=== PATIENT | female | born 1945 | race Two or more races ===

== ENCOUNTER → 2017-03-10 | Outpatient (CLI) | payer MEDICARE ==
--- NOTE | 2017-03-10 16:20 | REP ---
Clinical: Nephrolithiasis. Comparison: None. Technique: Two supine views of the abdomen and pelvis. Findings: Left intrarenal calculi measuring up to approximately 6 mm cannot be excluded. Calcifications in the pelvis likely represent phleboliths. Further evaluation of the urinary tract system is significantly limited due to technique and overlying bowel gas. Moderate fecal stasis is suggested without evidence for bowel obstruction. Skeletal structures demonstrate age-related degenerative changes. Impression: Findings suggest nonobstructing left renal calculi up to 6 mm. Further evaluation of the urinary tract system is limited. Signed by Twan Chavez MD 03/10/2017 04:12 P
== END ==
LOC: M SMT 15:27
PROVIDERS: ATTEND Nurse Practitioner Family
DX: R32 Unspecified urinary incontinence (principal); Z87.442 Personal history of urinary calculi
CPT/HCPCS: 51798; 74000; 81001; 87086; G0463

== ENCOUNTER → 2017-06-28 | Outpatient (REF) | payer MEDICARE | LOC: M SMT 16:58 | DX: N20.0 Calculus of kidney (principal) | CPT/HCPCS: 82360 ==

== ENCOUNTER → 2017-07-26 | Outpatient (CLI) | payer MEDICARE | LOC: M LRY 15:54 | DX: M19.041 Primary osteoarthritis, right hand (principal); M85.441 Solitary bone cyst, right hand; M79.641 Pain in right hand | CPT/HCPCS: 73130; 84550 ==

== ENCOUNTER → 2017-08-15 | Outpatient (CLI) | payer MEDICARE | LOC: M SMT 13:40 | DX: N20.0 Calculus of kidney (principal) | CPT/HCPCS: 74018; G0463 ==

== ENCOUNTER → 2017-11-17 | Outpatient (REF) | payer MEDICARE, MEDICAID ==
[2017-11-17 13:30] LABS: APPEARANCE, URINE CLEAR (CLEAR); BACTERIA, URINE AUTO NEGATIVE (NEGATIVE); BILIRUBIN, URINE AUTO NEGATIVE (NEGATIVE); BLOOD, URINE BLOOD 1+ (NEGATIVE); COLOR, URINE YELLOW (YELLOW); GLUCOSE, URINE (UA) AUTO NEGATIVE (NEGATIVE); KETONE, URINE AUTO NEGATIVE (NEGATIVE); LEUKOCYTE ESTERASE, URINE AUTO 1+ (NEGATIVE); MUCUS, URINE SMALL (NEGATIVE); NITRITE, URINE AUTO NEGATIVE (NEGATIVE); PROTEIN, URINE AUTO NEGATIVE (NEGATIVE); RBC, URINE AUTO 3 /HPF (0-3); SPECIFIC GRAVITY URINE AUTO 1.012 (1.002-1.035); SQUAMOUS EPITHELIAL CELL UR AU 0 /HPF (0-6); UROBILINOGEN, URINE AUTO 0.2 mg/dL (0.0-2.0); WBC, URINE AUTO 7 /HPF (0-3)
== END ==
LOC: M SMT 13:07
DX: N20.0 Calculus of kidney (principal)
CPT/HCPCS: 81001

== ENCOUNTER → 2017-11-28 | Outpatient (REF) | payer MEDICARE, MEDICAID ==
[2017-11-28 20:59] LABS: ESTIMATED AVERAGE GLUCOSE 131 MG/DL (60-110); HEMOGLOBIN A1c 6.2 %
== END ==
LOC: M SFHCLERA 15:26
DX: E11.29 Type 2 diabetes mellitus with other diabetic kidney complication (principal)
CPT/HCPCS: 83036

== ENCOUNTER → 2017-12-20 | Outpatient (CLI) | payer MEDICARE, MEDICAID | LOC: M RAD 10:35 | DX: Z12.31 Encounter for screening mammogram for malignant neoplasm of breast (principal); N60.31 Fibrosclerosis of right breast; N60.32 Fibrosclerosis of left breast | CPT/HCPCS: 77067 ==

== ENCOUNTER → 2018-02-28 | Outpatient (REF) | payer MEDICARE, MEDICAID ==
[2018-02-28 20:51] LABS: ANION GAP 7 MEQ/L (8-16); BLOOD UREA NITROGEN 11 MG/DL (7-18); CALCIUM LEVEL 9.3 MG/DL (8.8-10.2); CARBON DIOXIDE LEVEL 30 MEQ/L (21-32); CHLORIDE LEVEL 106 MEQ/L (98-107); CREATININE FOR GFR 0.76 MG/DL (0.55-1.30); GLOMERULAR FILTRATION RATE > 60.0 (>39); GLUCOSE, FASTING 114 MG/DL (70-100); POTASSIUM SERUM 3.6 MEQ/L (3.5-5.1); SODIUM LEVEL 143 MEQ/L (136-145)
== END ==
LOC: M SFHCLERA 14:56
DX: I10 Essential (primary) hypertension (principal)
CPT/HCPCS: 80048

== ENCOUNTER → 2018-05-12 | Outpatient (CLI) | payer MEDICARE, MEDICAID ==
--- NOTE | 2018-05-12 10:44 | REP ---
KUB, ONE VIEW: HISTORY: Kidney stone. COMPARISON: 08/15/2017 A small amount of air is present in small and large intestine. There are no air fluid levels or dilated loops of intestine. There is no pneumoperitoneum. Calcifications are present overlying the left kidney consistent with nephrolithiasis. Calcifications are present in the pelvis consistent with phleboliths. IMPRESSION: 1. Nonspecific bowel gas pattern. 2. Left nephrolithiasis. Electronically Signed by Josse Jc MD 05/12/2018 10:46 A
== END ==
LOC: M SMT 09:58
PROVIDERS: ATTEND Nurse Practitioner Family
DX: N20.0 Calculus of kidney (principal)
CPT/HCPCS: 74018; G0463

== ENCOUNTER → 2018-06-13 | Outpatient (CLI) | payer MEDICARE, MEDICAID ==
--- NOTE | 2018-06-13 12:15 | REP ---
Chest two views HISTORY: Cough Comparison: None The lungs are clear. The heart is normal in size. The pulmonary vasculature is normal in appearance. The bony structure is intact. IMPRESSION: No acute disease. Electronically Signed by Josse Jc MD 06/13/2018 12:06 P
== END ==
LOC: M LRY 11:20
PROVIDERS: ATTEND Nurse Practitioner Family
DX: R05 Cough (principal)
CPT/HCPCS: 71046; G0463

== ENCOUNTER → 2018-07-04 | Outpatient (REF) | payer MEDICARE, MEDICAID ==
[2018-07-04 12:20] LABS: BLOOD UREA NITROGEN 11 MG/DL (7-18); CALCIUM LEVEL 9.7 MG/DL (8.8-10.2); CARBON DIOXIDE LEVEL 30 MEQ/L (21-32); CHLORIDE LEVEL 104 MEQ/L (98-107); CHOLESTEROL LEVEL 241 MG/DL (<200); CHOLESTEROL RISK RATIO 5.604 (<5); CREATININE FOR GFR 0.75 MG/DL (0.55-1.30); GLOMERULAR FILTRATION RATE > 60.0 (>39); GLUCOSE, FASTING 111 MG/DL (70-100); HDL CHOLESTEROL 43 MG/DL (>40); LDL CHOLESTEROL 144 MG/DL (<100); NON-HDL-C 198 MG/DL; POTASSIUM SERUM 4.2 MEQ/L (3.5-5.1); SODIUM LEVEL 142 MEQ/L (136-145); TRIGLYCERIDES LEVEL 272 MG/DL (<150)
[2018-07-04 14:05] LABS: HEMOGLOBIN A1c 6.1 %
[2018-07-04 14:10] LABS: MALB URINE SIEMENS 50.3 MG/L; MAU/CREAT RATIO 32.4 MCG/MG (0.0-30.0)
== END ==
LOC: M SFHCLERA 08:15
PROVIDERS: ATTEND Family Medicine
DX: E11.29 Type 2 diabetes mellitus with other diabetic kidney complication (principal); I10 Essential (primary) hypertension

== ENCOUNTER → 2018-11-09 | Outpatient (CLI) | payer MEDICARE, MEDICAID ==
--- NOTE | 2018-11-09 10:31 | REP ---
Supine abdomen single AP view: Comparisons are 05/12/[address] of 10/21/2017. There are calcifications in the abdomen on the left, similar to the 05/12/2018 plain film study. These could be left renal calculi. The left kidney is obscured by bowel. The right kidney is partially obscured by bowel. No calcifications are identified on the right. There are phleboliths in the pelvis. The bowel gas pattern is normal. Electronically Signed by Robert Layne MD 11/09/2018 10:23 A
== END ==
LOC: M SMT 09:59
PROVIDERS: ATTEND Nurse Practitioner Family
DX: I87.8 Other specified disorders of veins (principal); N20.0 Calculus of kidney
CPT/HCPCS: 74018; G0463

== ENCOUNTER → 2019-01-09 | Outpatient (REF) | payer MEDICARE, MEDICAID ==
[2019-01-09 17:19] LABS: BLOOD UREA NITROGEN 12 MG/DL (7-18); CALCIUM LEVEL 9.6 MG/DL (8.8-10.2); CARBON DIOXIDE LEVEL 31 MEQ/L (21-32); CHLORIDE LEVEL 104 MEQ/L (98-107); CREATININE FOR GFR 0.81 MG/DL (0.55-1.30); GLOMERULAR FILTRATION RATE > 60.0 (>39); GLUCOSE, FASTING 84 MG/DL (70-100); SODIUM LEVEL 142 MEQ/L (136-145); URIC ACID 6.3 MG/DL (2.6-6.0)
[2019-01-09 17:47] LABS: CREATININE, URINE 29.4 MG/DL; CREATININE,RANDOM URINE 29.4 MG/DL; MALB URINE SIEMENS 25.1 MG/L; MAU/CREAT RATIO 85.3 MCG/MG (0.0-30.0); URIC ACID,RANDOM URINE 13.7 MG/DL
== END ==
LOC: M SFHCLERA 12:26
PROVIDERS: ATTEND Family Medicine
DX: I10 Essential (primary) hypertension (principal); E11.29 Type 2 diabetes mellitus with other diabetic kidney complication; M10.9 Gout, unspecified
CPT/HCPCS: 80048; 82043; 82570; 83036; 84550; 84560; G0463

== ENCOUNTER → 2019-01-11 | Outpatient (CLI) | payer MEDICARE, MEDICAID ==
--- NOTE | 2019-01-11 12:02 | REP ---
BILATERAL SCREENING DIGITAL MAMMOGRAM WITH 3D TOMOSYNTHESIS: There are no palpable abnormalities or other breast complaints. The the patient states she has not had a clinical breast examination in over a year. The Tyrer Cuzick Score is: 5.1% . Comparisons are 12/20/2017 and 06/21/2016. The breasts are heterogeneously dense, which could obscure small masses. There is no dominant mass, micro calcific cluster or architectural distortion that would indicate malignancy. There are no additional findings on 3D tomosynthesiss. There is no change from the prior study. Impression: BIRADS/ACR category 1 mammogram. Negative. Recommendation: Routine annual screening mammography. Because of the increased breast density, annual adjunctive breast MRI in addition to screening mammography is recommended. These can be performed at alternating six month intervals. This mammogram was interpreted with the aid of a FDA approved computer-aided detection system. A. Negative mammogram reports should not delay biopsy if a dominant or clinically suspicious mass is present. B. Not all breast cancers are identified by mammography or tomosynthesis. C. Adenosis and dense breasts may obscure an underlying neoplasm. Patient letter M1 dense breasts. Electronically Signed by Robert Layne MD 01/11/2019 11:53 A
== END ==
LOC: M RAD 10:57
PROVIDERS: ATTEND Family Medicine
DX: Z12.31 Encounter for screening mammogram for malignant neoplasm of breast (principal)

== ENCOUNTER → 2019-04-12 | Outpatient (REF) | payer MEDICARE, MEDICAID ==
[2019-04-12 16:25] LABS: BASO % 0.6 % (0.0-1.0); EOS # 0.1 10^3/uL (0.0-0.5); EOS % 1.9 % (0.0-3.0); HEMATOCRIT 52.2 % (36.0-47.0); HEMOGLOBIN 17.3 g/dl (12.0-15.5); LYMPH # 2.2 10^3/uL (1.5-5.0); LYMPH % 30.1 % (24.0-44.0); MEAN CORPUSCULAR HEMOGLOBIN 31.1 pg (27.0-33.0); MEAN CORPUSCULAR HGB CONC 33.1 g/dl (32.0-36.5); MEAN CORPUSCULAR VOLUME 93.9 fl (80.0-96.0); MONO # 0.5 10^3/uL (0.0-0.8); MONO % 6.9 % (0.0-5.0); NEUTROPHILS # 4.4 10^3/uL (1.5-8.5); NEUTROPHILS % 60.2 % (36.0-66.0); PLATELET COUNT, AUTOMATED 204 10^3/uL (150-450); RED BLOOD COUNT 5.56 10^6/uL (4.00-5.40); WHITE BLOOD COUNT 7.2 10^3/uL (4.0-10.0)
[2019-04-12 16:29] LABS: AMORPHOUS SEDIMENT SMALL (NEGATIVE); APPEARANCE, URINE HAZY (CLEAR); BACTERIA, URINE AUTO NEGATIVE (NEGATIVE); BILIRUBIN, URINE AUTO NEGATIVE (NEGATIVE); BLOOD, URINE BLOOD NEGATIVE (NEGATIVE); COLOR, URINE YELLOW (YELLOW); GLUCOSE, URINE (UA) AUTO NEGATIVE (NEGATIVE); KETONE, URINE AUTO NEGATIVE (NEGATIVE); LEUKOCYTE ESTERASE, URINE AUTO TRACE (NEGATIVE); NITRITE, URINE AUTO NEGATIVE (NEGATIVE); PROTEIN, URINE AUTO NEGATIVE (NEGATIVE); RBC, URINE AUTO 2 /HPF (0-3); SPECIFIC GRAVITY URINE AUTO 1.011 (1.002-1.035); SQUAMOUS EPITHELIAL CELL UR AU 0 /HPF (0-6); UROBILINOGEN, URINE AUTO 0.2 mg/dL (0.0-2.0); WBC, URINE AUTO 10 /HPF (0-3)
[2019-04-12 17:07] LABS: CREATININE, URINE 57.3 MG/DL; MALB URINE SIEMENS 19.2 MG/L; MAU/CREAT RATIO 33.5 MCG/MG (0.0-30.0)
[2019-04-12 17:10] LABS: ALBUMIN 3.9 GM/DL (3.2-5.2); ALT/SGPT 19 U/L (12-78); BILIRUBIN,TOTAL 1.2 MG/DL (0.2-1.0); BLOOD UREA NITROGEN 13 MG/DL (7-18); CALCIUM LEVEL 9.7 MG/DL (8.8-10.2); CARBON DIOXIDE LEVEL 32 MEQ/L (21-32); CHLORIDE LEVEL 104 MEQ/L (98-107); CREATININE FOR GFR 0.82 MG/DL (0.55-1.30); GLOMERULAR FILTRATION RATE > 60.0 (>39); GLUCOSE, FASTING 74 MG/DL (70-100); NT-PRO BNP 252 PG/ML (<125); SODIUM LEVEL 143 MEQ/L (136-145); TOTAL PROTEIN 7.2 GM/DL (6.4-8.2)
== END ==
LOC: M SFHCLERA 12:55
PROVIDERS: ATTEND Family Medicine
DX: I10 Essential (primary) hypertension (principal); M79.89 Other specified soft tissue disorders; R35.0 Frequency of micturition
CPT/HCPCS: 80053; 81001; 82043; 83880; 84443; 85025; 87086; G0463

== ENCOUNTER → 2019-07-04 | Outpatient (REF) | payer MEDICARE, MEDICAID ==
[2019-07-04 20:36] LABS: BLOOD UREA NITROGEN 13 MG/DL (7-18); CALCIUM LEVEL 9.1 MG/DL (8.8-10.2); CARBON DIOXIDE LEVEL 32 MEQ/L (21-32); CHLORIDE LEVEL 107 MEQ/L (98-107); CREATININE FOR GFR 0.82 MG/DL (0.55-1.30); GLOMERULAR FILTRATION RATE > 60.0 (>39); GLUCOSE, FASTING 110 MG/DL (70-100); SODIUM LEVEL 143 MEQ/L (136-145)
[2019-07-04 20:41] LABS: HEMOGLOBIN A1c 6.3 %
== END ==
LOC: M SFHCLERA 15:26
PROVIDERS: ATTEND Family Medicine
DX: I10 Essential (primary) hypertension (principal); E11.29 Type 2 diabetes mellitus with other diabetic kidney complication